=== PATIENT | male | born 1930 | race Caucasian/White ===

== ENCOUNTER 2019-04-12 11:32 | Emergency (ER) | payer MEDICARE, BC ==
[2019-04-12] MEDS ORDERED: Sodium Chloride 0.9% 10 ML Syringe FLUSH PRN (11:43)
[2019-04-12] MEDS ORDERED: Sodium Chloride 0.9% 2.5 ML Syringe FLUSH PRN (11:43)
--- NOTE | 2019-04-12 11:43 | EDM.PDOC ---
ED HPI GENERAL MEDICAL PROBLEM - General Chief Complaint: Genitourinary Problem Stated Complaint: SICK, CHILLS, BODY ACHES, POSSIBLE UTI Time Seen by Provider: 04/12/19 11:38 Source of Information: Reports: Patient History Limitations: Reports: No Limitations - History of Present Illness INITIAL COMMENTS - FREE TEXT/NARRATIVE: HISTORY AND PHYSICAL: History of present illness: Patient is an 88-year-old male who presents to the emergency room with complaints of difficulties with urination. He states over the past 1-2 years he has had urinary problems and has seen Dr. Melendez for these concerns. He states he does have an enlarged prostate although does not take any medications for this. Over the past several days he has had an increase in frequency but feels he is only voiding small amounts. He has also noted that he has been chilled in the evening and feels that he may has had had a fever complains of generalized body aches and pains. Patient denies any neck pain/stiffness, headache, change in vision, syncope or near syncope. Denies any chest pain, back pain, shortness of breath or cough. Denies any abdominal pain, nausea, vomiting, diarrhea, constipation nor any blood in urine or stool. Denies any testicular pain, erythema or swelling. No recent injury or trauma. Patient has been eating and drinking appropriately. Past medical history of coronary artery disease, hypertension, DC, pacemaker. Review of systems: As per history of present illness and below otherwise all systems reviewed and negative. Past medical history: As per history of present illness and as reviewed below otherwise noncontributory. Surgical history: As per history of present illness and as reviewed below otherwise noncontributory. Social history: See social history for further information Family history: As per history of present illness and as reviewed below otherwise noncontributory. Physical exam: General: Well-developed and well-nourished 88-year-old male. Alert and oriented. Nontoxic appearing and in no acute distress. Vital signs are stable and have been reviewed by me. HEENT: Atraumatic, normocephalic, pupils equal and reactive bilaterally, negative for conjunctival pallor or scleral icterus, mucous membranes moist, trachea midline. No drooling or trismus noted. No meningeal signs. No hot potato voice noted. Lungs: Clear to auscultation, breath sounds equal bilaterally, chest nontender. Heart: S1S2, regular rate and rhythm without overt murmur Abdomen: Soft, nondistended, nontender. Negative for masses or hepatosplenomegaly. Negative for costovertebral tenderness. Pelvis: Stable nontender. Genitourinary: Deferred. Rectal: Deferred. Skin: Intact, warm, dry. No lesions or rashes noted. Extremities: Atraumatic, moves all extremities per self without difficulty or deficits, negative for cords or calf pain. Neurovascular unremarkable. Neuro: Awake, alert, oriented. Cranial nerves II through XII unremarkable. Cerebellum unremarkable. Motor and sensory unremarkable throughout. Exam nonfocal. Notes: Lab work is unremarkable with the exception of the urinalysis. We'll give Rocephin IM and started on Cipro. Nursing staff was able to set up a follow-up appointment with Dr. Melendez for reevaluation. Patient states he feels improved while being here and is ready for discharge. Supportive care measures were reviewed and discussed. Voices understanding and is agreeable to plan of care. Denies any further questions or concerns at this time. Diagnostics: CBC, CMP, UA, EKG Therapeutics: Flomax, Rocephin IM Prescription: Cipro, Flomax Impression: UTI Plan: 1. Increase your oral fluids. 2. You received Rocephin IM here; can start your prescriptions tonight. 3. You have follow up appointment with Dr Melendez on Wednesday (04/17/2019) at 2pm. 4. Return to the ED as needed as we discussed. Definitive disposition and diagnosis as appropriate pending reevaluation and review of above. - Related Data Allergies Allergy/AdvReac Type Severity Reaction Status Date / Time No Known Allergies Allergy Verified 04/12/19 11:40 Home Meds: Home Meds Atenolol 50 mg PO BEDTIME 01/30/18 [History] Ciprofloxacin [Ciprofloxacin HCl] 500 mg PO BID 10 Days #20 tab 04/12/19 [Rx] Tamsulosin [Tamsulosin 24 Hr] 0.4 mg PO DAILY #10 cap.er 04/12/19 [Rx] atorvaSTATin [Lipitor] 40 mg PO BEDTIME 04/12/19 [History] Past Medical History Cardiovascular History: Reports: High Cholesterol, Hypertension - Infectious Disease History Infectious Disease History: Reports: None - Past Surgical History Cardiovascular Surgical History: Reports: Coronary Artery Bypass Social & Family History - Family History Family Medical History: Noncontributory - Caffeine Use Caffeine Use: Reports: Coffee ED ROS GENERAL - Review of Systems Review Of Systems: ROS reveals no pertinent complaints other than HPI. ED EXAM, GENERAL - Physical Exam Exam: See Below (See dictation) Course - Vital Signs Last Recorded V/S: Last Vital Signs Temp 97.2 F 04/12/19 11:43 Pulse 70 04/12/19 11:43 Resp 16 04/12/19 11:43 BP 109/75 04/12/19 11:43 Pulse Ox 93 L 04/12/19 11:43 - Orders/Labs/Meds Orders: Active Orders 24 hr Category Date Time Status Bladder Scan [RC] ASDIRECTED Care 04/12/19 12:01 Active EKG Documentation Completion [RC] STAT Care 04/12/19 11:43 Active CULTURE URINE [RM] Stat Lab 04/12/19 11:48 Received Sodium Chloride 0.9% [Saline Flush] Med 04/12/19 11:43 Active 10 ml FLUSH ASDIRECTED PRN Sodium Chloride 0.9% [Saline Flush] Med 04/12/19 11:43 Active 2.5 ml FLUSH ASDIRECTED PRN Saline Lock Insert [OM.PC] Stat Oth 04/12/19 11:43 Ordered Medication Orders Sodium Chloride (Saline Flush) 10 ml FLUSH ASDIRECTED PRN PRN Reason: Keep Vein Open Sodium Chloride (Saline Flush) 2.5 ml FLUSH ASDIRECTED PRN PRN Reason: Keep Vein Open Labs: Laboratory Tests 04/12/19 04/12/19 04/12/19 Range/Units 11:48 11:58 11:58 WBC 10.11 (4.0-11.0) K/uL RBC 4.96 (4.50-5.90) M/uL Hgb 14.8 (13.0-17.0) g/dL Hct 44.8 (38.0-50.0) % MCV 90.3 (80.0-98.0) fL MCH 29.8 (27.0-32.0) pg MCHC 33.0 (31.0-37.0) g/dL RDW Std Deviation 45.3 (28.0-62.0) fl RDW Coeff of Ankur 14 (11.0-15.0) % Plt Count 226 (150-400) K/uL MPV 9.70 (7.40-12.00) fL Neut % (Auto) 75.2 (48.0-80.0) % Lymph % (Auto) 10.8 L (16.0-40.0) % Evans % (Auto) 13.6 (0.0-15.0) % Eos % (Auto) 0.3 (0.0-7.0) % Baso % (Auto) 0.1 (0.0-1.5) % Neut # (Auto) 7.6 H (1.4-5.7) K/uL Lymph # (Auto) 1.1 (0.6-2.4) K/uL Evans # (Auto) 1.4 H (0.0-0.8) K/uL Eos # (Auto) 0.0 (0.0-0.7) K/uL Baso # (Auto) 0.0 (0.0-0.1) K/uL Nucleated RBC % 0.0 /100WBC Nucleated RBCs # 0 K/uL Sodium 139 (136-148) mmol/L Potassium 4.1 (3.5-5.1) mmol/L Chloride 106 (98-107) mmol/L Carbon Dioxide 25.0 (21.0-32.0) mmol/L BUN 18 (7.0-18.0) mg/dL Creatinine 1.0 (0.8-1.3) mg/dL Est Cr Clr Drug Dosing 51.06 mL/min Estimated GFR (MDRD) > 60.0 ml/min Glucose 89 (74-106) mg/dL Calcium 9.5 (8.5-10.1) mg/dL Total Bilirubin 0.6 (0.2-1.0) mg/dL AST 24 (15-37) IU/L ALT 33 (14-63) IU/L Alkaline Phosphatase 76 (46-116) U/L Total Protein 7.8 (6.4-8.2) g/dL Albumin 3.3 L (3.4-5.0) g/dL Globulin 4.5 H (2.6-4.0) g/dL Albumin/Globulin Ratio 0.7 L (0.9-1.6) Urine Color YELLOW Urine Appearance CLOUDY Urine pH 5.5 (5.0-8.0) Ur Specific [place] >= 1.030 (1.001-1.035) Urine Protein TRACE H (NEGATIVE) mg/dL Urine Glucose (UA) NEGATIVE (NEGATIVE) mg/dL Urine Ketones NEGATIVE (NEGATIVE) mg/dL Urine Occult Blood LARGE H (NEGATIVE) Urine Nitrite POSITIVE H (NEGATIVE) Urine Bilirubin SMALL H (NEGATIVE) Urine Ictotest NEGATIVE Urine Urobilinogen 1.0 (<2.0) EU/dL Ur Leukocyte Esterase MODERATE H (NEGATIVE) Urine RBC 8-10 (0-2/HPF) Urine WBC TO NUMEROUS TO COUNT H (0-5/HPF) Ur Epithelial Cells FEW (NONE-FEW) Urine Bacteria 1+ H (NEGATIVE) Meds: Medications Generic Name Dose Route Start Last Admin Trade Name Freq PRN Reason Stop Dose Admin Sodium Chloride 10 ml 04/12/19 11:43 Saline Flush FLUSH ASDIRECTED PRN Keep Vein Open Sodium Chloride 2.5 ml 04/12/19 11:43 Saline Flush FLUSH ASDIRECTED PRN Keep Vein Open Discontinued Medications Generic Name Dose Route Start Last Admin Trade Name Fresarwat PRN Reason Stop Dose Admin Ceftriaxone Sodium 1 gm 04/12/19 12:43 04/12/19 13:07 Rocephin IM 04/12/19 12:44 1 gm ONETIME ONE Administration Lidocaine HCl 2 ml 04/12/19 12:43 04/12/19 13:07 Xylocaine-Mpf 1% INJECT 04/12/19 12:44 2 ml ONETIME ONE Administration Tamsulosin HCl 0.4 mg 04/12/19 12:49 04/12/19 13:07 Flomax PO 04/12/19 12:50 0.4 mg ONETIME ONE Administration Departure - Departure Time of Disposition: 13:11 Disposition: Home, Self-Care 01 Clinical Impression: UTI, Urinary tract infectious disease - Discharge Information Prescriptions: Ciprofloxacin [Ciprofloxacin HCl] 500 mg PO BID 10 Days #20 tab Tamsulosin [Tamsulosin 24 Hr] 0.4 mg PO DAILY #10 cap.er Instructions: Urinary Tract Infection, Adult, [id number] Referrals: Juanis Melendez MD [Physician] - 04/17/19 2:00 pm Forms: ED Department Discharge Additional Instructions: The following information is given to patients seen in the emergency department who are being discharged to home. This information is to outline your options for follow-up care. We provide all patients seen in our emergency department with a follow-up referral. The need for follow-up, as well as the timing and circumstances, are variable depending upon the specifics of your emergency department visit. If you don't have a primary care physician on staff, we will provide you with a referral. We always advise you to contact your personal physician following an emergency department visit to inform them of the circumstance of the visit and for follow-up with them and/or the need for any referrals to a consulting specialist. The emergency department will also refer you to a specialist when appropriate. This referral assures that you have the opportunity for follow-up care with a specialist. All of these measure are taken in an effort to provide you with optimal care, which includes your follow-up. Under all circumstances we always encourage you to contact your private physician who remains a resource for coordinating your care. When calling for follow-up care, please make the office aware that this follow-up is from your recent emergency room visit. If for any reason you are refused follow-up, please contact the [facility] Emergency Department at and asked to speak to the emergency department charge nurse. [facility] [address] [place] [address] [address] [facility] - Urology [address] [place] [id number] 1. Increase your oral fluids. 2. You received Rocephin IM here; can start your prescriptions tonight. 3. You have follow up appointment with Dr Melendez on Wednesday (04/17/2019) at 2pm. 4. Return to the ED as needed as we discussed. - My Orders Last 24 Hours: My Active Orders 04/12/19 11:43 EKG Documentation Completion [RC] STAT Sodium Chloride 0.9% [Saline Flush] 10 ml FLUSH ASDIRECTED PRN Sodium Chloride 0.9% [Saline Flush] 2.5 ml FLUSH ASDIRECTED PRN Saline Lock Insert [OM.PC] Stat 04/12/19 11:48 CULTURE URINE [RM] Stat 04/12/19 12:01 Bladder Scan [RC] ASDIRECTED - Assessment/Plan Last 24 Hours: My Active Orders 04/12/19 11:43 EKG Documentation Completion [RC] STAT Sodium Chloride 0.9% [Saline Flush] 10 ml FLUSH ASDIRECTED PRN Sodium Chloride 0.9% [Saline Flush] 2.5 ml FLUSH ASDIRECTED PRN Saline Lock Insert [OM.PC] Stat 04/12/19 11:48 CULTURE URINE [RM] Stat 04/12/19 12:01 Bladder Scan [RC] ASDIRECTED
[2019-04-12 12:42] LABS: CHLORIDE,CL 106 mmol/L (98-107); SODIUM,NA 139 mmol/L (136-148)
[2019-04-12] MEDS ORDERED: cefTRIAXone 1 GM Vial IM ONE (12:43)
[2019-04-12] MEDS ORDERED: Lidocaine 1% PF 2 ML SDV INJECT ONE (12:43)
[2019-04-12] MEDS ORDERED: Tamsulosin 0.4 MG Cap.ER PO ONE (12:49)
== END 2019-04-12 13:21 | disposition home or self-care (01) ==
LOC: MW.ED 11:32
DX: N39.0 Urinary tract infection, site not specified (principal); I10 Essential (primary) hypertension; E78.00 Pure hypercholesterolemia, unspecified; Z79.899 Other long term (current) drug therapy
CPT/HCPCS: 36415; 80053; 81001; 85025; 87086; 87088; 87186; 93005; 96372; 99283; A9270; J0696; J2001

== ENCOUNTER 2019-05-15 16:38 | Emergency (ER) | payer MEDICARE, BC ==
[2019-05-15] MEDS ORDERED: Sodium Chloride 0.9% 2.5 ML Syringe FLUSH PRN (16:58)
[2019-05-15] MEDS ORDERED: Sodium Chloride 0.9% 10 ML Syringe FLUSH PRN (16:58)
[2019-05-15] MEDS ORDERED: Sodium Chloride 0.9% 1,000 ML IV ONE ×2 (16:58→19:01)
[2019-05-15] MEDS ORDERED: diazePAM 5 MG/ML MDV ONE (17:05)
--- NOTE | 2019-05-15 17:11 | EDM.PDOC ---
ED HPI GENERAL MEDICAL PROBLEM - General Chief Complaint: Genitourinary Problem Stated Complaint: PAIN IN BLADDER Time Seen by Provider: 05/15/19 16:43 Source of Information: Reports: Patient History Limitations: Reports: No Limitations - History of Present Illness INITIAL COMMENTS - FREE TEXT/NARRATIVE: History of present illness: []Patient presents with left inguinal swelling that has been present since this morning. His pain is so severe he thought he was going to . He had one episode of nonbloody diarrhea and has had some nausea with mild lower abdominal pain. Patient had a CT abdomen a month ago that showed a left inguinal hernia with sigmoid colon within the hernia without incarceration. Review of systems: As per history of present illness and below otherwise all systems reviewed and negative. Past medical history: As per history of present illness and as reviewed below otherwise noncontributory. Surgical history: As per history of present illness and as reviewed below otherwise noncontributory. Social history: No reported history of drug or alcohol abuse. Family history: As per history of present illness and as reviewed below otherwise noncontributory. Physical exam: General: Well developed, well nourished in NAD HEENT: Atraumatic, normocephalic, pupils reactive, negative for conjunctival pallor or scleral icterus, mucous membranes moist, throat clear, neck supple, nontender, trachea midline. Lungs: Clear to auscultation, breath sounds equal bilaterally, chest nontender. Heart: S1S2, regular, negative for clicks, rubs, or JVD. Abdomen: NABS, Soft, nondistended, nontender. Negative for masses or hepatosplenomegaly. Negative for costovertebral tenderness. Pelvis: Patient has a large tender palpable mass in the left inguinal canal, there is no erythema on the skin. I'm unable to reduce this hernia Genitourinary: Deferred. Rectal: Deferred. Extremities: Atraumatic, negative for cords or calf pain. Neurovascular unremarkable. Neuro: Awake, alert, oriented. Cranial nerves II through XII unremarkable. Cerebellum unremarkable. Motor and sensory unremarkable throughout. Exam nonfocal. Skin:warm and dry Diagnostics: CBC, chemistry, lactate, CT abdomen pelvis-New fluid and inflammatory changes inside left inguinal hernia with sigmoid colon present there is no bowel obstruction Therapeutics: IV hydration, Valium. declined pain meds ED Course: Consulted Dr. Garza who was in the emergency room for another reason and she examined patient and due to his previous CABG and pacemaker and age she requests that we transfer him[facility] Impression: left inguinal incarcerated hernia Prescriptions: none Plan: transfer to [facility] Definitive disposition and diagnosis as appropriate pending reevaluation and review of above. - Related Data Allergies Allergy/AdvReac Type Severity Reaction Status Date / Time No Known Allergies Allergy Verified 05/15/19 16:51 Home Meds: Home Meds Atenolol 50 mg PO BEDTIME 01/30/18 [History] atorvaSTATin [Lipitor] 40 mg PO BEDTIME 04/12/19 [History] Past Medical History Cardiovascular History: Reports: High Cholesterol, Hypertension - Infectious Disease History Infectious Disease History: Reports: None - Past Surgical History Cardiovascular Surgical History: Reports: Coronary Artery Bypass Social & Family History - Family History Family Medical History: Noncontributory - Tobacco Use Smoking Status *Q: Never Smoker - Caffeine Use Caffeine Use: Reports: Coffee ED ROS GENERAL - Review of Systems Review Of Systems: See Below ED EXAM, GI/ABD - Physical Exam Exam: See Below Course - Vital Signs Last Recorded V/S: Last Vital Signs Temp 97.4 F 05/15/19 16:52 Pulse 71 05/15/19 18:06 Resp 18 05/15/19 18:06 BP 101/65 05/15/19 18:06 Pulse Ox 96 05/15/19 18:06 - Orders/Labs/Meds Orders: Active Orders 24 hr Category Date Time Status NPO [Nothing Per Oral Diet] [DIET] Diet 05/16/19 Breakfast Active UA W/MICROSCOPIC [URIN] Stat Lab 05/15/19 16:43 Ordered Sodium Chloride 0.9% [Saline Flush] Med 05/15/19 16:58 Active 10 ml FLUSH ASDIRECTED PRN Sodium Chloride 0.9% [Saline Flush] Med 05/15/19 16:58 Active 2.5 ml FLUSH ASDIRECTED PRN Saline Lock Insert [OM.PC] Stat Oth 05/15/19 16:58 Ordered Medication Orders Sodium Chloride (Saline Flush) 10 ml FLUSH ASDIRECTED PRN PRN Reason: Keep Vein Open Last Admin: 05/15/19 17:11 Dose: 10 ml Sodium Chloride (Saline Flush) 2.5 ml FLUSH ASDIRECTED PRN PRN Reason: Keep Vein Open Last Admin: 05/15/19 17:11 Dose: 2.5 ml Labs: Laboratory Tests 05/15/19 05/15/19 05/15/19 Range/Units 17:10 17:10 17:10 WBC 18.02 H (4.0-11.0) K/uL RBC 4.96 (4.50-5.90) M/uL Hgb 14.7 (13.0-17.0) g/dL Hct 44.3 (38.0-50.0) % MCV 89.3 (80.0-98.0) fL MCH 29.6 (27.0-32.0) pg MCHC 33.2 (31.0-37.0) g/dL RDW Std Deviation 43.6 (28.0-62.0) fl RDW Coeff of Ankur 14 (11.0-15.0) % Plt Count 226 (150-400) K/uL MPV 10.00 (7.40-12.00) fL Neut % (Auto) 78.7 (48.0-80.0) % Lymph % (Auto) 11.8 L (16.0-40.0) % Sunflower % (Auto) 8.8 (0.0-15.0) % Eos % (Auto) 0.6 (0.0-7.0) % Baso % (Auto) 0.1 (0.0-1.5) % Neut # (Auto) 14.2 H (1.4-5.7) K/uL Lymph # (Auto) 2.1 (0.6-2.4) K/uL Sunflower # (Auto) 1.6 H (0.0-0.8) K/uL Eos # (Auto) 0.1 (0.0-0.7) K/uL Baso # (Auto) 0.0 (0.0-0.1) K/uL Nucleated RBC % 0.0 /100WBC Nucleated RBCs # 0 K/uL Lactate 1.0 (0.20-2.00) mmol/L Sodium 140 (136-148) mmol/L Potassium 4.3 (3.5-5.1) mmol/L Chloride 106 (98-107) mmol/L Carbon Dioxide 26.8 (21.0-32.0) mmol/L BUN 18 (7.0-18.0) mg/dL Creatinine 1.0 (0.8-1.3) mg/dL Est Cr Clr Drug Dosing 51.06 mL/min Estimated GFR (MDRD) > 60.0 ml/min Glucose 100 (74-106) mg/dL Calcium 10.2 H (8.5-10.1) mg/dL Total Bilirubin 0.9 (0.2-1.0) mg/dL AST 22 (15-37) IU/L ALT 22 (14-63) IU/L Alkaline Phosphatase 54 (46-116) U/L Total Protein 7.3 (6.4-8.2) g/dL Albumin 3.4 (3.4-5.0) g/dL Globulin 3.9 (2.6-4.0) g/dL Albumin/Globulin Ratio 0.9 (0.9-1.6) Meds: Medications Generic Name Dose Route Start Last Admin Trade Name Freq PRN Reason Stop Dose Admin Sodium Chloride 10 ml 05/15/19 16:58 05/15/19 17:11 Saline Flush FLUSH 10 ml ASDIRECTED PRN Administration Keep Vein Open Sodium Chloride 2.5 ml 05/15/19 16:58 05/15/19 17:11 Saline Flush FLUSH 2.5 ml ASDIRECTED PRN Administration Keep Vein Open Discontinued Medications Generic Name Dose Route Start Last Admin Trade Name Freq PRN Reason Stop Dose Admin Diazepam 2.5 mg 05/15/19 16:58 05/15/19 17:11 Valium IVPUSH 05/15/19 16:59 2.5 mg ONETIME ONE Administration Diazepam Confirm 05/15/19 17:05 05/15/19 17:14 Valium Administered 05/15/19 17:06 Not Given Dose 5 mg .ROUTE .STK-MED ONE Sodium Chloride 1,000 mls @ 999 mls/hr 05/15/19 16:58 05/15/19 17:11 Normal Saline IV 05/15/19 17:58 999 mls/hr .Bolus ONE Administration Departure - Departure Time of Disposition: 18:23 Disposition: DC/Tfer to Acute Hospital 02 Condition: Fair Clinical Impression: Incarcerated hernia - Discharge Information *PRESCRIPTION DRUG MONITORING PROGRAM REVIEWED*: Not Applicable *COPY OF PRESCRIPTION DRUG MONITORING REPORT IN PATIENT DAMON: Not Applicable Referrals: PCP,Unknown [Primary Care Provider] - Forms: ED Department Discharge - My Orders Last 24 Hours: My Active Orders 05/15/19 16:43 UA W/MICROSCOPIC [URIN] Stat 05/15/19 16:58 Sodium Chloride 0.9% [Saline Flush] 10 ml FLUSH ASDIRECTED PRN Sodium Chloride 0.9% [Saline Flush] 2.5 ml FLUSH ASDIRECTED PRN Saline Lock Insert [OM.PC] Stat 05/16/19 Breakfast NPO [Nothing Per Oral Diet] [DIET] - Assessment/Plan Last 24 Hours: My Active Orders 05/15/19 16:43 UA W/MICROSCOPIC [URIN] Stat 05/15/19 16:58 Sodium Chloride 0.9% [Saline Flush] 10 ml FLUSH ASDIRECTED PRN Sodium Chloride 0.9% [Saline Flush] 2.5 ml FLUSH ASDIRECTED PRN Saline Lock Insert [OM.PC] Stat 05/16/19 Breakfast NPO [Nothing Per Oral Diet] [DIET]
[2019-05-15 17:41] LABS: BLOOD UREA NITROGEN,BUN 18 mg/dL (7.0-18.0); CARBON DIOXIDE,CO2 26.8 mmol/L (21.0-32.0); CHLORIDE,CL 106 mmol/L (98-107); GLUCOSE RANDOM 100 mg/dL (74-106); POTASSIUM,K 4.3 mmol/L (3.5-5.1); SODIUM,NA 140 mmol/L (136-148)
--- NOTE | 2019-05-15 18:12 | CT ---
INDICATION: Incarcerated left-sided hernia. COMPARISON: CT of the abdomen and pelvis from 04/17/2019 TECHNIQUE: CT examination of the abdomen and pelvis was performed without contrast enhancement using 3 mm thick axial sections from the lung bases through the pubic symphysis. Oral contrast was not administered. Please note that all CT scans at this facility use dose modulation, iterative reconstruction, and/or weight-based dosing when appropriate to reduce radiation dose to as low as reasonably achievable. FINDINGS: In the abdomen, the unenhanced liver is again seen to have a simple appearing cyst in the subcapsular portion of the lateral aspect of the lateral segment of the left lobe near the dome, segment 2, measuring 2.4 centimeters in diameter. A few other very tiny low-density regions are again seen scattered throughout the liver consistent with additional small cysts. The spleen, pancreas, and right adrenal are normal in appearance. There is no change in the 1.6 centimeter left adrenal nodule which is nonspecific. There is no change in a 1.9 centimeter low-density cyst arising from the posterior interpolar left kidney. There is no change in the 2.2 centimeter cyst arising from the lower pole of the left kidney. The unenhanced kidneys are otherwise normal in appearance. The gallbladder is again seen to be absent, consistent with cholecystectomy. The abdominal aorta is normal in caliber with no sign of dilatation. There is no sign of retroperitoneal mass or adenopathy. The stomach, loops of small bowel, and colon in the abdomen are normal in appearance. In the pelvis, the appendix is nonvisualized, but there is no sign of an inflammatory process in the area of the appendix. Again seen is a right indirect inguinal hernia. There is new fluid in the hernia sac and mild inflammation of the fat within the hernia. The herniated knuckle of sigmoid colon within the hernia sac shows new mild thickening of its wall, consistent with inflammation or ischemia. There is no sign of dilatation of the herniated portion of the sigmoid colon or of the more proximal sigmoid colon. There is no change in moderate sigmoid diverticulosis without evidence of diverticulitis. The loops of small bowel and colon in the pelvis are otherwise normal in appearance. The prostate remains normal in appearance. The urinary bladder is normal in appearance. There is no sign of pelvic or inguinal mass or adenopathy. Again seen are several noncalcified pulmonary nodules in the posterior right lung base overlying the posterior dome of the right lobe of the liver. Again seen are noncalcified pleural nodules in the posterior-medial right lung base on images 1 and 2. Again seen are noncalcified pleural nodules in the posterior-lateral left lung base and in the posterior left lung base adjacent to the posterior and lateral hemidiaphragm. All of these findings are stable compared to the previous CT of the abdomen and pelvis from 01/30/2018. Again seen is mild scoliosis of the lumbar spine convex towards the left Again seen is moderate L2-3 and L5-S1 disc degenerative disease. Again seen is mild L4-5 disc degenerative disease. IMPRESSION: CT of the abdomen shows no change in simple cysts in the liver, the largest in the lateral segment of the left lobe. No change in small left adrenal nodule, nonspecific. No change in left renal cysts. CT of the pelvis shows new fluid and inflammatory changes involving the nondistended knuckle of sigmoid colon herniated into a small left indirect inguinal hernia. No sign of obstruction of the herniated sigmoid colon or the more proximal sigmoid colon. Findings consistent with an incarcerated inguinal hernia. Stable moderate sigmoid diverticulosis with no sign of diverticulitis. Stable appearance of multiple noncalcified pleural nodules in both lung bases. Please note that all CT scans at this facility use dose modulation, iterative reconstruction, and/or weight-based dosing when appropriate to reduce radiation dose to as low as reasonably achievable. Dictated by Tahir Mg MD @ May 15 2019 5:56PM Signed by Dr. Tahir Mg @ May 15 2019 6:10PM
== END 2019-05-15 19:57 ==
LOC: MW.ED 16:38
DX: K40.30 Unilateral inguinal hernia, with obstruction, without gangrene, not specified as recurrent (principal); I10 Essential (primary) hypertension; E78.00 Pure hypercholesterolemia, unspecified; Z79.899 Other long term (current) drug therapy
CPT/HCPCS: 74176; 80053; 81001; 83605; 85025; 96361; 96374; 99285; J3360; J7040

== ENCOUNTER 2019-05-19 12:17 | Emergency (ER) | payer MEDICARE, BC ==
--- NOTE | 2019-05-19 12:20 | EDM.PDOC ---
ED HPI GENERAL MEDICAL PROBLEM - General Stated Complaint: GROIN PAIN Time Seen by Provider: 05/19/19 12:19 Source of Information: Reports: Patient History Limitations: Reports: No Limitations - History of Present Illness INITIAL COMMENTS - FREE TEXT/NARRATIVE: History of present illness: []He was seen here on the 05/15 with a regulated hernia that was not reducible and was transferred to [place]. Patient's hernia was reduced for conscious sedation and then he was discharged. He was told to follow up with his PCP in 2 days. Patient was mowing his lawn yesterday stepped down and felt the hernia pop out again. He is here because he wants the surgery to be done here. Review of systems: As per history of present illness and below otherwise all systems reviewed and negative. Past medical history: As per history of present illness and as reviewed below otherwise noncontributory. Surgical history: As per history of present illness and as reviewed below otherwise noncontributory. Social history: No reported history of drug or alcohol abuse. Family history: As per history of present illness and as reviewed below otherwise noncontributory. Physical exam: General: Well developed, well nourished in NAD HEENT: Atraumatic, normocephalic, pupils reactive, negative for conjunctival pallor or scleral icterus, mucous membranes moist, throat clear, neck supple, nontender, trachea midline. Lungs: Clear to auscultation, breath sounds equal bilaterally, chest nontender. Heart: S1S2, regular, negative for clicks, rubs, or JVD. Abdomen: NABS, Soft, nondistended, nontender. Negative for masses or hepatosplenomegaly. Negative for costovertebral tenderness. Left inguinal hernia on exam his out . Firm pressure on the mass easily. There is no erythema on the skin or residual tenderness. Pelvis: Stable nontender. Genitourinary: Deferred. Rectal: Deferred. Extremities: Atraumatic, negative for cords or calf pain. Neurovascular unremarkable. Neuro: Awake, alert, oriented. Cranial nerves II through XII unremarkable. Cerebellum unremarkable. Motor and sensory unremarkable throughout. Exam nonfocal. Skin:warm and dry Diagnostics: none Therapeutics: hernia reduced at bedside ED Course: Stable Impression: left ingunial hernia-reduced Prescriptions: none Plan: Follow-up Gen. surgery Definitive disposition and diagnosis as appropriate pending reevaluation and review of above. - Related Data Allergies Allergy/AdvReac Type Severity Reaction Status Date / Time No Known Allergies Allergy Verified 05/15/19 16:51 Home Meds: Home Meds Atenolol 50 mg PO BEDTIME 01/30/18 [History] atorvaSTATin [Lipitor] 40 mg PO BEDTIME 04/12/19 [History] Past Medical History Cardiovascular History: Reports: High Cholesterol, Hypertension - Infectious Disease History Infectious Disease History: Reports: None - Past Surgical History Cardiovascular Surgical History: Reports: Coronary Artery Bypass Social & Family History - Family History Family Medical History: Noncontributory - Caffeine Use Caffeine Use: Reports: Coffee ED ROS GENERAL - Review of Systems Review Of Systems: See Below ED EXAM, GI/ABD - Physical Exam Exam: See Below Course - Vital Signs Last Recorded V/S: Last Vital Signs Temp 97.2 F 05/19/19 12:25 Pulse 71 05/19/19 12:25 Resp 16 05/19/19 12:25 BP 144/86 H 05/19/19 12:25 Pulse Ox 96 05/19/19 12:25 Departure - Departure Time of Disposition: 13:21 Disposition: Home, Self-Care 01 Condition: Good Clinical Impression: Inguinal hernia Qualifiers: Obstruction and gangrene presence: without obstruction or gangrene Laterality: unilateral Recurrence: recurrent Qualified Code(s): K40.91 - Unilateral inguinal hernia, without obstruction or gangrene, recurrent - Discharge Information *PRESCRIPTION DRUG MONITORING PROGRAM REVIEWED*: Not Applicable *COPY OF PRESCRIPTION DRUG MONITORING REPORT IN PATIENT [place]: Not Applicable Referrals: PCP,Unknown [Primary Care Provider] - Additional Instructions: The following information is given to patients seen in the emergency department who are being discharged to home. This information is to outline your options for follow-up care. We provide all patients seen in our emergency department with a follow-up referral. The need for follow-up, as well as the timing and circumstances, are variable depending upon the specifics of your emergency department visit. If you don't have a primary care physician on staff, we will provide you with a referral. We always advise you to contact your personal physician following an emergency department visit to inform them of the circumstance of the visit and for follow-up with them and/or the need for any referrals to a consulting specialist. The emergency department will also refer you to a specialist when appropriate. This referral assures that you have the opportunity for follow-up care with a specialist. All of these measure are taken in an effort to provide you with optimal care, which includes your follow-up. Under all circumstances we always encourage you to contact your private physician who remains a resource for coordinating your care. When calling for follow-up care, please make the office aware that this follow-up is from your recent emergency room visit. If for any reason you are refused follow-up, please contact the [facility] Emergency Department at and asked to speak to the emergency department charge nurse. Take meds as directed, follow up with your primary care physician, return to ER if symptoms worsen or change. A hernia belt whenever you are up and walking, [facility] - General Surgery Professional Building [address] [place] [address], [address] [place] [address]
== END 2019-05-19 13:45 | disposition home or self-care (01) ==
LOC: MW.ED 12:17
DX: K40.91 Unilateral inguinal hernia, without obstruction or gangrene, recurrent (principal); I10 Essential (primary) hypertension; E78.00 Pure hypercholesterolemia, unspecified; Z79.899 Other long term (current) drug therapy
CPT/HCPCS: 99283